=== PATIENT | female | born 1965 | race Caucasian/White ===

== ENCOUNTER 2022-04-21 09:00 | Outpatient (CLI) | payer OTHER, SELFPAY ==
--- NOTE | 2022-04-21 | CRLHL7_ITS ---
For Patients: As a result of the Century Cures Act, medical imaging exams and procedure reports are released immediately into your electronic medical record. You may view this report before your referring provider. If you have questions, please contact your health care provider. PLEASE SEE ULTRASOUND-GUIDED RIGHT BREAST BIOPSY PERFORMED SAME DAY CRL:mili garces/Dictated by: Juan J Adair MD @ 04/22/2022 9:55:00 AM (Electronically Signed)
--- NOTE | 2022-04-21 09:15 | CRLHL7_ITS ---
For Patients: As a result of the Century Cures Act, medical imaging exams and procedure reports are released immediately into your electronic medical record. You may view this report before your referring provider. If you have questions, please contact your health care provider. ULTRASOUND-GUIDED BREAST BIOPSY AND POST-BIOPSY DIGITAL MAMMOGRAM FOR BIOPSY MARKER PLACEMENT CLINICAL HISTORY: Indeterminate nodular density RIGHT breast. COMPARISON STUDIES: 04/14/2022. TECHNIQUE: Real-time ultrasound with image documentation was used for targeting the breast lesion. Core biopsy specimens were obtained using an automated gun with an 18-gauge biopsy needle. Post-biopsy CC and ML digital mammograms were obtained to document position of the biopsy marker. CONSENT and TIME OUT: The procedure, risks, and alternatives were explained to the patient and a consent was signed. [place] Protocol was followed including pre-procedure verification that relevant information/documentation was available, reviewed and properly matched to the patient; consent accurate and complete; and equipment and supplies available. Time Out was conducted just prior to starting procedure to verify the four required elements: patient identity, correct side/site marked (if applicable), procedure, relevant images/results properly labeled and displayed (if applicable). PROCEDURE: The patient was positioned supine on the ultrasound table. The breast was prepped with ChloraPrep. 8 cc of 1 percent lidocaine was used for local anesthesia. Core samples were obtained. A sterile metal biopsy clip was placed percutaneously to ashleigh the lesion position within the breast. The specimens were placed in 10% formalin and sent to the pathology department. Pressure was held on the biopsy site until all bleeding subsided. The skin incision was closed with Steri-Strips. An ice pack was positioned over the biopsy site. Post-biopsy instructions were reviewed with the patient, and a written copy was given to her. LATERALITY: RIGHT breast. LESION: Circumscribed heterogeneously hypoechoic nodule measuring 2.0 x 0.7 x 2.1 cm at 9 o`clock 6 cm from the nipple. SUSPICION FOR MALIGNANCY: Medium, probable apocrine hyperplasia or clustered microcysts. NUMBER OF SAMPLES: 5. BIOPSY CLIP SHAPE: Oval. PROXIMITY OF CLIP TO TARGET: Within the lesion. IMPRESSION: Ultrasound-guided breast biopsy. When the pathology report is available, an addendum to this report will be made. ACR not applicable Dictated by Juan J Adair MD @ 04/22/2022 9:55:18 AM jj/Dictated by: Juan J Aadir MD @ 04/22/2022 9:55:00 AM ----ADDENDUM---- Pathology consistent with benign clustered cysts. No evidence of atypia or malignancy. This is concordant. Routine annual BILATERAL screening mammography recommended. Dictated by: Juan J Adair MD @04/23/2022 12:51:39 PM Signed by:?Juan J Adair MD @04/23/2022 1:25:50 PM (Electronically Signed)
== END 2022-04-21 09:01 | disposition home or self-care (01) ==
LOC: US 09:02
PROVIDERS: PCP Family Medicine; Visit Provider Family Medicine
DX: N63.10 Unspecified lump in the right breast, unspecified quadrant (principal); N60.01 Solitary cyst of right breast; R92.8 Other abnormal and inconclusive findings on diagnostic imaging of breast
CPT/HCPCS: 19083; 77065; 88305; A4648; A4649

== ENCOUNTER 2024-03-27 08:58 | Emergency (ER) | payer BC, SELFPAY ==
[2024-03-27 09:09] VITALS: BP 143/88; PULSE 69; RESP 16; TEMP 36.6; O2SAT 94
--- NOTE | 2024-03-27 10:09 | ED.GENADULT ---
HPI - General Adult General Date Seen: 03/27/24 Chief complaint: Extremity Pain/Injury, Lower Stated complaint: something popped in leg, weak Time Seen by Provider: 03/27/24 09:58 History of Present Illness HPI narrative: 58-year-old female presenting to the ER today with right knee and right lower extremity pain. She was walking yesterday and heard a ?pop? in her right knee. Since then she has been having pain and unable to bear weight on it. Her right knee is developed swelling since yesterday. She and her are her here and they assist each other in providing history. She has been having some pain in her right posterolateral knee for the past few weeks. She has been trying to rest and massage when he gets or. Yesterday she was walking down a hill when she felt a ?pop? in that area of her knee and ever since then has had increased knee pain. The pain is in her posterolateral knee and also radiates up into her posterior thigh and down into her gastroc. No swelling. No bruising. No redness. No anterior pain. No medial pain. She has been having a lot of pain and not able to bear weight on the knee. It got a little bit swollen. Today it was still sore and she was debating whether not call her doctor, but since it was hurting so much she could not step on it, she need to come here to the ER. 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 No previous right knee problems. Related Data Home Medications ?Medication ?Instructions ?Recorded ?Confirmed amlodipine 5 mg tablet 5 mg PO DAILY 03/27/24 03/27/24 paroxetine HCl 40 mg tablet 40 mg PO DAILY 03/27/24 03/27/24 Previous Rx's ?Medication ?Instructions ?Recorded hydrocodone 5 mg-acetaminophen 325 1 tab PO Q4H PRN pain #10 tabs 03/27/24 mg tablet Allergies Allergy/AdvReac Type Severity Reaction Status Date / Time No Known Drug Allergies Allergy Verified 03/27/24 09:16 Exam Narrative: Exam Narrative: Constitutional: Appears well-developed and well-nourished. Polite and attentive.. Non-toxic appearing. HENT: Head: Atraumatic. No signs of injury. Nose: No nasal discharge. Mouth/Throat: Mucous membranes are moist. Pharynx is normal. Tonsils symmetric. Uvula midline. Airway patent. Eyes: Conjunctivae normal and EOM are normal. Pupils are equal, round, and reactive to light. Right eye exhibits no discharge. Left eye exhibits no discharge. No icterus. Neck: Normal range of motion. Neck supple. No adenopathy. No stridor. Cardiovascular: Normal rate and regular rhythm. No murmur heard. No murmurs, rubs, or gallops. Brisk capillary refill Pulmonary/Chest: Effort normal. No stridor. No respiratory distress. No wheezes.No rhonchi. No rales. No retractions. Musculoskeletal: Normal except for right knee-normal range of motion. No edema. No tenderness. No deformity. Right lower extremity: Pelvis is stable. Hips nontender. Quadriceps and hamstring nontender. Femoral shaft nontender. Knee: Normal inspection. There is no joint effusion. No redness or warmth. Anterior knee and patella are nontender. Medial knee and proximal medial tibia are nontender. She is tender over the anterolateral, lateral and posterolateral knee. No crepitus. No obvious deformity. No bruising. Subtle swelling there. Minimal tenderness in the lateral posterior knee but no tender in the popliteal fossa. Mild tenderness in the proximal lateral gastroc. Otherwise gastroc Achilles are nontender. No edema in the ankle or lower extremity. Ankle, foot are nontender. Normal DP and PT pulses. Normal cap refill. Intact ankle plantar flexion and dorsiflexion. Normal toe wiggling. Distally neurovascularly intact. Neurological: Alert. Normal strength. No cranial nerve deficit or sensory deficit. Coordination normal. GCS eye subscore is 4. GCS verbal subscore is 5. GCS motor subscore is 6. Skin: Skin is warm. No rash noted. Const: Vital Signs, click to edit/add: Vital Signs - 24 hr 03/27/24 09:09 Temperature 97.8 F Pulse Rate [Pulse Oximeter] 69 Respiratory Rate 16 Blood Pressure [Ri ght Upper Arm] 143/88 H Pulse Oximetry 94 Oxygen Delivery Me thod Room Air Course Vital Signs Vital signs: Initial Vital Signs Temperature 97.8 F 03/27/24 09:09 Temperature Source Temporal Artery Scan 03/27/24 09:09 Pulse Rate 69 03/27/24 09:09 Pulse Rhythm Regular 03/27/24 09:09 Respiratory Rate 16 03/27/24 09:09 Blood Pressure 143/88 H 03/27/24 09:09 Blood Pressure Mean 106 H 03/27/24 09:09 Blood Pressure Position Sitting 03/27/24 09:09 Pulse Oximetry 94 03/27/24 09:09 Oxygen Delivery Method Room Air 03/27/24 09:09 Vital Signs Temperature 97.8 F 03/27/24 09:09 Pulse Rate 69 03/27/24 09:09 Respiratory Rate 16 03/27/24 09:09 Blood Pressure 143/88 H 03/27/24 09:09 Pulse Oximetry 94 03/27/24 09:09 Oxygen Delivery Method Room Air 03/27/24 09:09 Temperature 97.8 F 03/27/24 09:09 Pulse Rate 69 03/27/24 09:09 Respiratory Rate 16 03/27/24 09:09 Blood Pressure 143/88 H 03/27/24 09:09 Pulse Oximetry 94 03/27/24 09:09 Oxygen Delivery Method Room Air 03/27/24 09:09 Medications Administered Medications: Discontinued Medications Generic Name Dose Route Start Last Admin Trade Name Ariadna PRN Reason Stop Dose Admin Hydrocodone Bitart/Acetaminophen 1 tab 03/27/24 10:20 03/27/24 10:44 Hydrocodone-Acetamin 5-325 Mg 1 Tab PO 03/27/24 10:21 1 tab ONCE ONE Administration Ondansetron HCl 4 mg 03/27/24 10:20 03/27/24 10:45 Ondansetron Odt 4 Mg Tab PO 03/27/24 10:21 4 mg ONCE ONE Administration Medical Decision Making [facility] Narrative Medical decision making narrative: Pleasant 58-year-old female presenting to the ER today with a couple of weeks history of right knee pain abruptly worse yesterday when she felt a pop while walking down a hill. She has been having a lot of pain and not able to bear weight on the knee since then so per came to the ER today. Consider possible fracture of the tibial plateau or the proximal fibula or avulsion fracture. X-rays are obtained and are fortunately negative for any acute fracture. There is no redness or warmth or joint effusion at this point to suggest a septic arthritis or crystalline arthritis. Would hold off on arthrocentesis this point. Differential also includes soft tissue injury such as a ruptured Ornelas's cyst, injury to the lateral collateral ligament or possible injury to the lateral meniscus. Will need close outpatient orthopedic follow-up. Will place the patient into a knee immobilizer to help protect her knee and give her crutches to limit weight-bearing for comfort. She will start with [id number] pain medications such as ibuprofen or Tylenol for pain relief. However will also add prescription for opiate pain killers that she can use for breakthrough pain. Opiate precautions discussed. Imaging Data XR RI kne: Attestation: I have reviewed the pertinent imaging results. Radiologist's impression: Findings/Impression: Bones: No definite evidence of acute fracture. Joint spaces: Small patellofemoral osteophytes consistent with osteoarthritis with trace knee effusion. Likely loose body at the posterior aspect of the joint. Soft tissues: Unremarkable. Discharge Plan Discharge Clinical Impression: Knee pain, right Patient Disposition: Home, Self-Care Condition: Stable Instructions: Knee Pain (ED) Additional Instructions: As we discussed, please follow-up with the orthopedic clinic within the next 2-4 days. You can call [phone] to arrange an ER follow-up appointment. If you have worsening pain, high fever, worsening redness or swelling of your knee joint, or any other problems, please come back to the ER right away to be rechecked. To help manage her pain use the knee brace and crutches to help rest her knee for the next couple of days. Use Tylenol or ibuprofen 1st for pain. You can use an ice pack for 20 minutes every 3-4 hours to help reduce pain and swelling. Use the prescription pain killer ([place]) if needed for breakthrough pain. Use caution with [place] because it causes dizziness, drowsiness, constipation, and can be addictive. Prescriptions: New hydrocodone-acetaminophen 5-325 mg tablet 1 tab PO Q4H PRN (Reason: pain) Qty: 10 0RF No Action amlodipine 5 mg tablet 5 mg PO DAILY paroxetine HCl 40 mg tablet 40 mg PO DAILY Follow Up/Referrals: Andressa Rodriguez MD [Primary Care Provider] - Stand Alone Forms: [facility] Info Instructions
--- NOTE | 2024-03-27 10:20 | CRLHL7_ITS ---
For Patients: As a result of the Century Cures Act, medical imaging exams and procedure reports are released immediately into your electronic medical record. You may view this report before your referring provider. If you have questions, please contact your health care provider. Indication: Knee pain, felt pop 1 day prior Technique: Three views right knee Comparison: None Findings/Impression: Bones: No definite evidence of acute fracture. Joint spaces: Small patellofemoral osteophytes consistent with osteoarthritis with trace knee effusion. Likely loose body at the posterior aspect of the joint. Soft tissues: Unremarkable. Dictated by Fransisco Elmore MD @ 03/27/2024 11:04:11 AM (Electronically Signed)
[2024-03-27] MEDS: HYDROCODONE-ACETAMIN 5-325 MG 1 TAB PO (10:44)
[2024-03-27] MEDS: ONDANSETRON ODT 4 MG TAB PO (10:45)
--- OUTSIDE RECORDS SUMMARY | 2024-03-27 10:48 | XMS_ITS | Clinical Summary ---
Author Organization [facility] Address [place], [place] [address] Care Team Providers Care Mathematical Scientist Name Role Phone Andressa Rodriguez MD Primary Care Provider Allergies Active Allergy Reactions Criticality Noted Date Comments Lisinopril Cough 04/10/2019 Medications Medication Sig Dispensed Refills Start Date End Date Status fluticasone (50 mcg per actuation) nasal solution (FLONASE)Indications :Seasonal allergic rhinitis due to pollen Inhale 1 [place] in the nostril(s) 2 times daily. 1 Bottle 11 07/27/2017 Active multivitamin (MVI) tablet Take 1 tablet by mouth once daily. 0 03/06/2019 Active calcium carbonate-vitamin D3, 600 mg-400 unit, 600 mg(1,500mg) -400 unit tablet Take 1 tablet by mouth once daily with a meal. 200 tablet 4 03/06/2019 Active cetirizine (ZYRTEC) 10 mg tabletIndications:Ac red devil allergic reaction, initial encounter,Rash and nonspecific skin eruption Take 1-2 tabs by mouth twice daily for acute allergic reaction. 30 Tablet 08/27/2022 Active amLODIPine (NORVASC) 5 mg tabletIndications:HT N (hypertension) Take 1 Tablet (5 mg) by mouth once daily. 90 Tablet 3 04/21/2023 Active PARoxetine (PAXIL) 40 mg tabletIndications:Pa cherie disorder without agoraphobia Take 1 Tablet (40 mg) by mouth every morning. 90 Tablet 3 04/21/2023 Active ALPRAZolam (XANAX) 0.25 mg tabletIndications:Pa cherie disorder without agoraphobia,Anxiety state Take 1 Tablet (0.25 mg) by mouth every 12 hours if needed for Panic. 30 Tablet 1 04/21/2023 Active Active Problems Problem Noted Date Diagnosed Date Hyperplastic colon polyp 06/03/2015 Overview (06/03/2015): Colonoscopy 05/2015 polyps repeat in 10 years Panic disorder without agoraphobia 12/12/2013 Lateral malleolar fracture 04/26/2013 Panic disorder without agoraphobia 03/03/2007 Resolved Problems Problem Noted Date Diagnosed Date Resolved Date ETD (eustachian tube dysfunction) 04/24/2011 05/16/2012 Headache(784.0) 04/24/2011 05/16/2012 Immunizations Name Administration Dates Next Due COVID-19 vaccine ([employer] NTech 30mcg/0.3mL) 12YO+ BIVALENT PF, MDV 03/18/2022 COVID-19 vaccine ([employer] NTech 30mcg/0.3mL) PF, MDV 07/09/2020,06/18/2020 Influenza Virus, Unspecified 02/19/2016 Influenza, IIV4 02/22/2023, 2,03/17/2021,2019,03/16/2014 Td (Age >=7 Years) 05/17/2001 Tdap 12/15/2013 Zoster (Shingrix-RZV, recombinant) 09/05/2020, Family History Medical History Relation Name Comments Heart Disease Father Hypertension Father Other Father bladder cancer Cancer-breast Maternal Aunt Good Health Mother Cancer-colon No Family History Relation Name Status Comments Father (Age 72) cerebral b leed (tumor bleed? aneurysm?) Maternal Aunt Mother Alive Social History Tobacco Use Types Packs/Day Years Used Date Smoking Tobacco: Never Smokeless Tobacco: Never Tobacco Cessation:Counseling Given: Yes Alcohol Use Standard Drinks/Week Comments Not Currently 0 (1 standard drink = 0.6 oz pur e alcohol) occasional PHQ-2 Answer Date Recorded PHQ-2 TOTAL SCORE 0 04/21/2023 Social Connections Answer Date Recorded Do you often feel lonely or isolated from those around you? 0 04/21/2023 Financial Resource Strain Answer Date R ecorded Difficulty of Paying Living Expenses 3 04/21/2023 Difficulty of Paying Living Expenses Not on file 04/21/2023 Food Insecurity Answer Date Recorded Do you worry your food will run out before you are able to buy more? 1 04/21/2023 Transportation Needs Answer Date Record ed Does lack of transportation keep you from medica l appointments? 1 04/21/2023 Does lack of transportation keep you from work, meetings or getting things that you need? 1 04/21/2023 Housing Stability Answer Date Recorded What is your housing situation today? 1 04/21/2023 Sex and Gender Information Value Date Recorded Sex Assigned at Not on file Gender Identity Not on file Sexual Orientation Not on file Obstetrics History Para Term AB IAB SAB Ectopic Multiple Livin g Live Births 4 2 2 2 1 1 2 Date Outcome GA Total Labor Labor/2nd/3rd Weight Sex Type Anes PTL Fatou A1 A5 Name Clin Term Term SAB Ectopic Last Filed Vital Signs Vital Sign Reading Time Taken Comments Blood Pressure 125/83 05/25/2023 8:13 AM [employer] Pulse 74 05/25/2023 8:13 AM [employer] Temperature 36.3 ??C (97.4 ??F) 11/15/2018 11:12 AM C DT Respiratory Rate 20 06/09/2017 3:43 PM [employer] Oxygen Saturation 95% 05/25/2023 8:13 AM [employer] Inhaled Oxygen Concentration - - Weight 80.8 kg (178 lb 3.2 oz) 04/21/2023 2:56 P M [employer] Height 160 cm (5' 3) 04/21/2023 2:56 PM [employer] Body Mass Index 31.57 04/21/2023 2:56 PM [employer] Plan of Treatment Health Maintenance Due Date Last Done Comments Tetanus booster 12/16/2023 12/15/2013, 05/17/2001 COVID-19 vaccine series ( season) 2024 03/18/2022, 07/09/2020, 06/18/2020 Influenza for age 50-64 01/16/2024 02/23/20 23, 04/07/2022, 03/17/2021, Additional history exists BMI (ht and wt on same day) for age 18+ 04/21/2024 04/21/2023, 03/18/2022, 03/17/2021, Additional history exists Depression screening for age 12+ 04/21/2024 04/21/2023, 03/20/2022, 03/18/2022, Additional history exists Mammogram for age 45-75 05/04/2024 05/04/20 23, 04/21/2022, 04/14/2022, Additional history exists Pap test for age 21-65 03/13/2025 , 03/13/2020, 04/28/2016, Additional history exists Colonoscopy through age 75 05/29/2025 05/29/2015, Lipids for age 45-75 04/21/2028 04/21/2023, 03/18/2022, 03/18/2022, Additional history exists Hepatitis C screening for age 18-79 Completed 12/12/2013 Tdap Completed 12/15/2013 Zoster (shingles) series for age 50+ Completed 09/05/2020, 03/13/2020 HIV for age 15-65 Completed 04/21/2023 Pneumococcal series for age 6-64 Aged Out No longer eligible based on patient's age to complete this topic Procedures Procedure Name Priority Date/Time Associated Diagnosis Comments XR MAMMO SILAS BILAT SCREEN Routine 05/04/2023 11:09 AM [employer] Visit for screening mammogram ANTI HIV 1/2 Routine 04/21/2023 3:50 PM [employer] Screening for HIV (human immunodeficiency virus) LIPID PANEL W REFLEX MEASURED LDL Routine 04/21/2023 3:50 PM [employer] [employer] Lipid screening 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 ??Recommend annual mammograms. MAMMOGRAM ASSESSMENT: ??ACR 2 Benign PATIENTS: You will also receive a letter with your examination results in an easy to read format. ??If you have questions about your results, please contact your referring provider. Narrative 05/04/2023 2:05 PM [employer] For Patients: As a result of the Century Cures Act, medical imaging exams and procedure reports are released immediately into your electronic medical record. You may view this report before your referring provider. If you have questions, please contact your health care provider. XR MAMMO SILAS BILAT SCREEN [[id number]] CLINICAL HISTORY: ??This is an asymptomatic 57 y.o. patient. INDICATION FOR EXAM: Mammogram Screening. TECHNIQUE: CC & MLO views were obtained. ??This study was evaluated with the assistance of Computer-Aided Detection. Breast Tomosynthesis was used in interpretation. COMPARISON FILMS: Yes 03/20/22 [facility] 09/23/18 [facility] FINDINGS: ??The breasts are heterogeneously dense, which may obscure small masses. ??No suspicious masses or microcalcifications. ??Post biopsy changes of right breast. Andressa Rodriguez MD MAMMO * (ABNORMAL) LIPID PANEL W REFLEX MEASURED LDL (04/21/2023 3:50 PM [employer]) CHOLESTEROL,TOTAL 248(H) 100 - 199 mg/dL 04/22/2023 2:37 PM [employer] [employer] [facility] Comment: Cholesterol, Total Reference Ranges Desirable <200 mg/dL Borderline 200-239 mg/dL High >=240 mg/dL TRIGLYCERIDES 280(H) <150 mg/dL 04/22/2023 2:37 PM [employer] [employer] [facility] HDL CHOLESTEROL 42 >40 mg/dL 3 2:37 PM [employer] [facility] NON-HDL CHOLESTEROL 206(H) <145 mg/dl 04/22/2023 2:37 PM [employer] [employer] [facility] CHOL/HDL RATIO 5.90(H) <4.50 04/22/2023 2:37 PM [employer] [facility] LDL CHOLESTEROL 150(H) <=130 mg/dL 04/22/2023 2:37 PM [employer] [facility] VLDL CHOLESTEROL 56(H) <=30 mg/dL 04/22/2023 2:37 PM [employer] [facility] PROVIDER ORDERED STATUS RANDOM 04/22/2023 2:37 PM [employer] [employer] [facility] Blood BLOOD SPECIMEN / Unknown Venipuncture / Unknown 04/21/2023 3:50 PM [employer] 04/21/2023 3:51 PM [facility] [employer] Andressa Rodriguez MD CHEMISTRY Performing Organization Address [facility] Co de Phone Number [facility] [address] [place] [address], * ANTI HIV 1/2 [[id number]] (04/21/2023 3:50 PM [employer]) HIV-1/HIV-2 SCREEN Non-Reacti ve Non-Reacti ve 04/22/2023 2:25 PM [facility] [employer] [facility] Comment:HIV-1 p24 and HIV-1/ HIV-2 Ab Not Detected. Blood BLOOD SPECIMEN / Unknown Venipuncture / Unknown 04/21/2023 3:50 PM [facility] [employer] 04/21/2023 3:51 PM [employer] Andressa Rodriguez MD SEND OUTS Performing Organization Address [facility] Co de Phone Number [facility] [address] [place] [address], * TREE FELLER OPERATOR THIN PREP PAP SCREEN IMAGED [[id number]] (03/13/2020 1:15 PM CDT) Case Report Gynecologic Cytology Report ? Case: [id number] ? Authorizing Provider: ??Michael, Andressa Gavi, MD Collected: ? 03/13/2020 1315 ? Ordering Location: ? [facility] ?? Received: ?03/13/2020 1404 ? Clinic ? First Screen: ?Rissa Mcdonough ? Specimen: ?TREE FELLER OPERATOR ThinPrep Vial Screening, Cervical ? 03/20/2020 11:36 AM [facility] LAB[facility]-C ENTRAL LABORATORY INTERPRETATION/ RESULT NEGATIVE FOR INTRAEPITHELIAL LESION OR MALIGNANCY (NIL) (none) 03/20/2020 11:36 AM [facility] [employer]C ENTRAL LABORATORY IMEN ADEQUACY Satisfactory for evaluation Endocervical component present 03/20/2020 11:36 AM [facility] LABOR[facility]-C ENTRAL LABORATORY HPV REQUEST HPV and PAP 03/20/2020 11:36 AM [facility] [employer] [facility] LAB[facility]-C ENTRAL LABORATORY Date of 201303/20/2020 11:36 AM [facility] LAB[facility]-C EN[facility]AL LABORATORY Last Pap Date 04/28/16 03/20/2020 11:36 AM [facility] LAB[facility]-C ENTRAL LABORATORY Last Pap Result NIL 0 11:36 AM [facility] Abnormal Pap or [place] Bx in last 5 years No 03/20/2020 11:36 AM [facility] Menstrual Status Postmenopausal 03/20/2020 11:36 AM [facility] [place] Bx Done Today No 03/20/2020 11:36 AM [facility] Additional Information None given 03/20/2020 11:36 AM [facility] Comment: Cytology is screened at [facility] - [address], [place] [address] and [facility] - [address], [place] [address] and [facility] - [address] [place] [address] Interpreted at [facility] - [address], [place] [address] Automated Review Successful 03/20/2020 11:36 AM [facility] Comment:Specimen processed s uccessfully by automated orchid superintendent device, [employer] Imaging System, [employer] ANCILLARY TESTING TREE FELLER OPERATOR HPV Ordered, Please see separate report 03/20/2020 11:36 AM [facility] Note The pap test is a screening technique, not a diagnostic procedure. It is used primarily to screen for squamous cancers and precursor lesions. Published studies have shown that it is subject to both false negative and false positive results. The pap test should not be used as the sole means to diagnose or exclude pre-malignant and malignant lesions. 03/20/2020 11:36 AM [facility] Other (Cervical) Non-Blood / Unknown 03/13/2020 1:15 PM CDT 03/13/2020 2:04 PM CDT Andressa Rodriguez MD PATHOLOGY/CYTOL OGY [facility] [address] [place] [address], [place] * ANTI HCV [[id number]] (12/12/2013 3:28 PM CDT) HEPATITIS C ANTIBODY Non-Reacti ve Non-Reacti ve 12/12/2013 8:24 PM CDT [facility] Blood specimen (specimen) BLOOD SPECIMEN / Unknown Venipuncture / Unknown 12/12/2013 3:28 PM CDT 12/12/2013 3:28 PM CDT Narrative [facility] - 12/12/2013 8:24 PM CDT Antibodies to HCV not detected; does not exclude the possibility of exposure to HCV. [place] SEND OUTS [facility] [address] [place] [address], from Last 3 Months or Most Recently Relevant to Health Maintenance Care Teams Mathematical Scientist Relationship Specialty Start Date End Date Andressa Rodriguez MD [address] [place] [address] PCP - General Family Practice 04/25/19
== END 2024-03-27 11:56 | disposition home or self-care (01) ==
PROVIDERS: Emergency Provider Emergency Medicine; PCP Family Medicine; Visit Provider Emergency Medicine
DX: M25.561 Pain in right knee (principal)
CPT/HCPCS: 73562; 99282; 99283; A9270

== ENCOUNTER 2024-05-18 10:04 | Day surgery (SDC) | payer OTHER, SELFPAY ==
[2024-05-18] VITALS (13 sets, daily range): BP systolic 101–145; BP diastolic 63–90; PULSE 51–63; RESP 10–16; TEMP 36.3–37.1; O2SAT 94–100; BMI 30.6
--- OUTSIDE RECORDS SUMMARY | 2024-05-18 10:09 | XMS_ITS | Clinical Summary ---
Author Organization [employer] [facility] Address [place], [place] [address] Care Team Providers Care Electric Welder Name Role Phone Andressa Rodriguez MD Primary Care Provider Allergies Active Allergy Reactions Criticality Noted Date Comments Lisinopril Cough 04/10/2019 Medications fluticasone (50 mcg per actuation) nasal solution (FLONASE)Indicat ions:Seasonal allergic rhinitis due to pollen Inhale 1 [place] in the nostril(s) 2 times daily. 1 Bottle 11 8 Active multivitamin (MVI) tablet Take 1 tablet by mouth once daily. 0 9 Active calcium carbonate-vitami n D3, 600 mg-400 unit, 600 mg(1,500mg) -400 unit tablet Take 1 tablet by mouth once daily with a meal. 200 tablet 4 9 Active cetirizine (ZYRTEC) 10 mg tabletIndication s:Acute allergic reaction, initial encounter,Rash and nonspecific skin eruption Take 1-2 tabs by mouth twice daily for acute allergic reaction. 30 Tablet 3 Active amLODIPine (NORVASC) 5 mg tabletIndication s:HTN (hypertension) Take 1 Tablet (5 mg) by mouth once daily. 90 Tablet 3 4 Active ALPRAZolam (XANAX) 0.25 mg tabletIndication s:Panic disorder without agoraphobia,Anxi ety state Take 1 Tablet (0.25 mg) by mouth every 12 hours if needed for Panic. 30 Tablet 1 4 Active PARoxetine (PAXIL) 40 mg tabletIndication s:Panic disorder without agoraphobia Take 1 Tablet (40 mg) by mouth once daily in the morning. 90 Tablet 3 4 Active atenoloL (TENORMIN) 25 mg tabletIndication s:Hypertension Take 1 Tablet (25 mg) by mouth once daily. 30 Tablet 4 Active ALPRAZolam (XANAX) 0.25 mg tabletIndication s:Panic disorder without agoraphobia,Anxi ety state Take 1 Tablet (0.25 mg) by mouth every 12 hours if needed for Panic. 30 Tablet 1 3 04/28/20 24 Discontinu ed(Reorder (E-cancel not sent)) PARoxetine (PAXIL) 40 mg tabletIndication s:Panic disorder without agoraphobia Take 1 Tablet (40 mg) by mouth once daily in the morning. 30 Tablet 4 05/03/20 24 Discontinu ed(Reorder (E-cancel not sent)) amLODIPine (NORVASC) 5 mg tabletIndication s:HTN (hypertension) Take 1 Tablet (5 mg) by mouth once daily. 30 Tablet 4 04/28/20 24 Discontinu ed(Reorder (E-cancel not sent)) metoprolol succinate (Toprol XL) 25 mg Sustained-Releas e tabletIndication s:HTN (hypertension) Take 1 Tablet (25 mg) by mouth once daily. 90 Tablet 4 05/11/20 24 Discontinu ed(*Allerg ic/Adverse Rxn/Side Effects) Active Problems Problem Noted Date Diagnosed Date Hyperplastic colon polyp 06/03/2015 Overview (06/03/2015): Colonoscopy 05/2015 polyps repeat in 10 years Panic disorder without agoraphobia 12/12/2013 Lateral malleolar fracture 04/26/2013 Panic disorder without agoraphobia 03/03/2007 Resolved Problems Problem Noted Date Diagnosed Date Resolved Date ETD (eustachian tube dysfunction) 04/24/2011 05/16/2012 Headache(784.0) 04/24/2011 05/16/2012 Encounters Date Type Department Care Team Description 05/08/2024 Telephone [facility] [address] [place] [address] Andressa Rodriguez MD Same Day Appt 05/03/2024 3:40 PM CERTIFIED LEGAL INVESTIGATOR Office Visit [facility] [address] [place] [address] Andressa Rodriguez MD Pre-Op Exam (Knee torn meniscus repair 05/18/24 [facility] ); Immunization/Injectio n 05/03/2024 Travel 04/28/2024 10:55 AM CERTIFIED LEGAL INVESTIGATOR Office Visit [facility] [address] [place] [address] Andressa Rodriguez MD Follow Up (Went to the ED in regards to BP they adjusted her meds and now things are not well, racing heart. Unsure if it is the medication or anxiety but has not had this issue until medication was adjusted. She has surgery in May and needs this to be resolved.) 04/28/2024 Travel 04/20/2024 Nurse Triage [facility] [address] [place] [address] Andressa Rodriguez MD High Blood Pressure 04/18/2024 Refill [facility] [address] [place] [address] [address] Andressa Rodriguez MD Refill Request (Paroxetine 40mg, Amlodipine Besylate 5mg tablets) 03/27/2024 Orders Only [facility] Scanner 1 scan: (1-Ord) KYRIE, RIGHT KNEE, 03/27/2024 from Last 3 Months Immunizations Name Administration Dates Next Due COVID-19 VACCINE SPIKEVAX (M ODERNA 50MCG/0.5ML) 12YO+ PFS 05/03/2024 COVID-19 vaccine (Pfizer-Bio NTech 30mcg/0.3mL) 12YO+ BIVALENT PF, MDV 03/18/2022 COVID-19 vaccine (Pfizer-Bio NTech 30mcg/0.3mL) PF, MDV 07/09/2020,06/18/2020 INFLUENZA, IIV3 PF (AGE >= 6 MO) 05/03/2024 Influenza Virus, Unspecified 02/19/2016 Influenza, IIV4 02/22/2023, 2,03/17/2021,2019,03/16/2014 Td (Age >=7 Years) 05/17/2001 Tdap 05/03/2024,12/15/2013 Zoster (Shingrix-RZV, recombinant) 09/05/2020, Family History Medical [...] = 0.6 oz pur e alcohol) occasional [facility] Utilities Answer Date Recorded Do you have trouble paying f or utilities (for example, heat, electricity, water, phone)? Yes 04/28/2024 PHQ-2 Answer Date Recorded PHQ-2 TOTAL SCORE 0 04/21/2023 Social Connections Answer Date Recorded Do you often feel lonely or isolated from those around you? 0 04/28/2024 Financial Resource Strain Answer Date R ecorded Difficulty of Paying Living Expenses 3 04/28/2024 Difficulty of Paying Living Expenses Not on file 04/28/2024 Food Insecurity Answer Date Recorded Do you worry your food will run out before you are able to buy more? 1 04/28/2024 Transportation Needs Answer Date Record ed Does lack of transportation keep you from medica l appointments? 1 04/28/2024 Does lack of transportation keep you from work, meetings or getting things that you need? 1 04/28/2024 Housing Stability Answer Date Recorded What is your housing situation today? 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 Not on file Not on file Not on file Obstetrics History Para Term AB IAB SAB Ectopic Multiple Livin g Live Births 4 2 2 2 1 1 2 Date Outcome GA Total Labor Labor/2nd/3rd Weight Sex Type Anes PTL Fatou A1 A5 Name Clin Term Term SAB Ectopic Last Filed Vital Signs Vital Sign Reading Time Taken Comments Blood Pressure 134/86 05/03/2024 3:46 PM CERTIFIED LEGAL INVESTIGATOR Pulse 67 05/03/2024 3:46 PM CERTIFIED LEGAL INVESTIGATOR Temperature 36.3 C (97.4 F) 11/15/2018 11:12 AM CDT Respiratory Rate 20 06/09/2017 3:43 PM CERTIFIED LEGAL INVESTIGATOR Oxygen Saturation 96% 05/03/2024 3:46 PM CERTIFIED LEGAL INVESTIGATOR Inhaled Oxygen Concentration - - Weight 76 kg (167 lb 9.6 oz) 05/03/2024 3:46 PM CERTIFIED LEGAL INVESTIGATOR Height 158.8 cm (5' 2.5) 05/03/2024 3:46 PM CERTIFIED LEGAL INVESTIGATOR Body Mass Index 30.17 05/03/2024 3:46 PM CERTIFIED LEGAL INVESTIGATOR Plan of Treatment Upcoming Encounters Date Type Department Care Team (Late st Contact Info) Description 05/22/2024 2:20 PM CERTIFIED LEGAL INVESTIGATOR Office Visit [facility] [address] [place] [address] Fadumo Macias MD [address] [place] [address] Health Maintenance Due Date Last Done Comments Pneumococcal series for age 50+ (1 of 1 - PCV) 12/17/2013 RSV vaccine for adults or (1 - Risk 60-74 years 1-dose series) 2023 Depression screening for age 12+ 04/21/2024 04/21/2023, 03/20/2022, 03/18/2022, Additional history exists Mammogram for age 45-75 05/04/2024 05/04/20 23, 04/21/2022, 04/14/2022, Additional history exists Pap test for age 21-65 03/13/2025 0, 03/13/2020, 04/28/2016, Additional history exists BMI (ht and wt on same day) for age 18+ 05/03/2025 05/03/2024, 04/21/2023, 03/18/2022, Additional history exists Colonoscopy through age 75 05/29/2025 05/29/2015, Lipids for age 45-75 04/21/2028 04/21/2023, 03/18/2022, 03/18/2022, Additional history exists Tetanus booster 05/03/2034 05/03/2024, 08/05/2013, 05/17/2001 Hepatitis C screening for ag e 18-79 Completed 12/12/2013 Zoster (shingles) series for age 50+ Completed 09/05/2020, 03/13/2020 HIV for age 15-65 Completed 04/21/2023 COVID-19 vaccine series Completed 05/03/20, 03/18/2022, 07/09/2020, Additional history exists Influenza for age 50-64 Completed 05/03/20, 02/22/2023, 04/07/2022, Additional history exists Tdap Completed 05/03/2024, 12/15/2013 Procedures Procedure Name Priority Date/Time Associated Diagnosis Comments SCAN-RADIOLOGY REPORT 03/27/2024 12:00 AM CERTIFIED LEGAL INVESTIGATOR XR MAMMO SILAS BILAT SCREEN Routine 05/04/2023 11:09 AM CERTIFIED LEGAL INVESTIGATOR Visit for screening mammogram ANTI HIV 1/2 Routine 04/21/2023 3:50 PM CERTIFIED LEGAL INVESTIGATOR Screening for HIV (human immunodeficiency virus) LIPID PANEL W REFLEX MEASURED LDL Routine 04/21/2023 3:50 PM CERTIFIED LEGAL INVESTIGATOR Lipid screening LEHR CUTTER THIN PREP PAP SCREEN IMAGED Routine 03/13/2020 1:15 PM CDT Pap smear for cervical cancer screening Screening for cervical cancer ANTI HCV Routine 12/12/2013 3:28 PM CDT Need for hepatitis C screening test from Last 3 Months or Most Recently Relevant to Health Maintenance Results * SCAN-RADIOLOGY REPORT (03/27/2024 12:00 AM CERTIFIED LEGAL INVESTIGATOR) Anatomical Region Laterality Modality Other us Scanner OTHER Final Result * XR MAMMO SILAS BILAT SCREEN (05/04/2023 11:09 AM CERTIFIED LEGAL INVESTIGATOR) Anatomical Region Laterality Modality BREASTS, Breast Left, Breast Right Bilateral Mammography Impressions 05/04/2023 2:05 PM CERTIFIED LEGAL INVESTIGATOR There is no radiographic evidence for malignancy. Recommend annual mammograms. MAMMOGRAM ASSESSMENT: ACR 2 Benign PATIENTS: You will also receive a letter with your examination results in an easy to read format. If you have questions about your results, please contact your referring provider. Narrative 05/04/2023 2:05 PM CERTIFIED LEGAL INVESTIGATOR For Patients: As a result of the Century Cures Act, medical imaging exams and procedure reports are released immediately into your electronic medical record. You may view this report before your referring provider. If you have questions, please contact your health care provider. XR MAMMO SILAS BILAT SCREEN [[id number]] CLINICAL HISTORY: This is an asymptomatic 57 y.o. patient. INDICATION FOR EXAM: Mammogram Screening. TECHNIQUE: CC & MLO views were obtained. This study was evaluated with the assistance of Computer-Aided Detection. Breast Tomosynthesis was used in interpretation. COMPARISON FILMS: Yes 03/20/22 Lessons Only 09/23/18 [facility] FINDINGS: The breasts are heterogeneously dense, which may obscure small masses. No suspicious masses or microcalcifications. Post biopsy changes of right breast. us Andressa Rodriguez MD MAMMO Final R esult * (ABNORMAL) LIPID PANEL W REFLEX MEASURED LDL (04/21/2023 3:50 PM CERTIFIED LEGAL INVESTIGATOR) CHOLESTEROL,TOTAL 248(H) 100 - 199 mg/dL 04/22/2023 2:37 PM CERTIFIED LEGAL INVESTIGATOR [facility] Comment: Cholesterol, Total Reference Ranges Desirable <200 mg/dL Borderline 200-239 mg/dL High >=240 mg/dL TRIGLYCERIDES 280(H) <150 mg/dL 04/22/2023 2:37 PM CERTIFIED LEGAL INVESTIGATOR [facility] HDL CHOLESTEROL 42 >40 mg/dL 3 2:37 PM CERTIFIED LEGAL INVESTIGATOR [facility] NON-HDL CHOLESTEROL 206(H) <145 mg/dl 04/22/2023 2:37 PM CERTIFIED LEGAL INVESTIGATOR [facility] CHOL/HDL RATIO 5.90(H) <4.50 04/22/2023 2:37 PM CERTIFIED LEGAL INVESTIGATOR [facility] LDL CHOLESTEROL 150(H) <=130 mg/dL 04/22/2023 2:37 PM CERTIFIED LEGAL INVESTIGATOR [facility] VLDL CHOLESTEROL 56(H) <=30 mg/dL 04/22/2023 2:37 PM CERTIFIED LEGAL INVESTIGATOR [facility] PROVIDER ORDERED STATUS RANDOM 04/22/2023 2:37 PM CERTIFIED LEGAL INVESTIGATOR [facility] Blood BLOOD SPECIMEN / Unknown Venipuncture / Unknown 04/21/2023 3:50 PM CERTIFIED LEGAL INVESTIGATOR 04/21/2023 3:51 PM CERTIFIED LEGAL INVESTIGATOR Andressa Rodriguez MD CHEMISTRY Final R esult Performing Organization Address City/[facility]/ZIP Co de Phone Number [facility] [address] [place] [id number], [place] * ANTI HIV 1/2 [30136.0] (04/21/2023 3:50 PM CERTIFIED LEGAL INVESTIGATOR) HIV-1/HIV-2 SCREEN Non-Reacti ve Non-Reacti ve 04/22/2023 2:25 PM CERTIFIED LEGAL INVESTIGATOR [facility] Comment:HIV-1 p24 and HIV-1/ HIV-2 Ab Not Detected. Blood BLOOD SPECIMEN / Unknown Venipuncture / Unknown 04/21/2023 3:50 PM CERTIFIED LEGAL INVESTIGATOR 04/21/2023 3:51 PM CERTIFIED LEGAL INVESTIGATOR Andressa Rodriguez MD SEND OUTS Final R esult Performing Organization Address City/[facility]/ZIP Co de Phone Number [facility] [address] [place] [id number], [place] * LEHR CUTTER THIN PREP PAP SCREEN IMAGED [[id number]] (03/13/2020 1:15 PM CDT) Case Report Gynecologic Cytology Report Case: [id number] Authorizing Provider: Andressa Rodriguez MD Collected: 03/13/2020 1315 Ordering Location: [facility] Received: 03/13/2020 1404 Clinic First Screen: Mcdonough, Rissa Specimen: LEHR CUTTER ThinPrep Vial Screening, Cervical 03/20/2020 11:36 AM CERTIFIED LEGAL INVESTIGATOR [employer]AL LAB[facility]AT[facility] INTERPRETATION/ RESULT NEGATIVE FOR INTRAEPITHELIAL LESION OR MALIGNANCY (NIL) (none) 03/20/2020 11:36 AM CERTIFIED LEGAL INVESTIGATOR [facility] [employer] EN[facility]AL LAB[facility]AT[facility] IMEN ADEQUACY Satisfactory for evaluation Endocervical component present 03/20/2020 11:36 AM CERTIFIED LEGAL INVESTIGATOR [facility] HPV REQUEST HPV and PAP 03/20/2020 11:36 AM CERTIFIED LEGAL INVESTIGATOR [employer] Date of LMP 201303/20/2020 11:36 AM CERTIFIED LEGAL INVESTIGATOR [employer] EN[facility] Last Pap Date 04/28/16 03/20/2020 11:36 AM CERTIFIED LEGAL INVESTIGATOR [facility] [employer] EN[facility]AL LAB[facility] Last Pap Result NIL 0 11:36 AM CERTIFIED LEGAL INVESTIGATOR [facility] [employer] ENTRAL LABORATORY Abnormal Pap or Melvin Bx in last 5 years No 03/20/2020 11:36 AM CERTIFIED LEGAL INVESTIGATOR [facility] Menstrual Status Postmenopausal 03/20/2020 11:36 AM CERTIFIED LEGAL INVESTIGATOR [facility] Melvin Bx Done Today No 03/20/2020 11:36 AM CERTIFIED LEGAL INVESTIGATOR [facility] Additional Information None given 03/20/2020 11:36 AM CERTIFIED LEGAL INVESTIGATOR [facility] [employer] [facility] Comment: Cytology is screened at [facility] [employer] [facility], Central Laboratory - [address], [place] [address] and [facility] - [address], [place] [address] and [facility] - [address] [place] [address] Interpreted at [facility] [employer], Central Laboratory - [address], [place] [address] Automated Review Successful 03/20/2020 11:36 AM CERTIFIED LEGAL INVESTIGATOR [facility] [employer] ENTRAL LABORATORY Comment:Specimen processed s uccessfully by automated undergraduate intern device, ThinPrep Imaging System, [employer] ANCILLARY TESTING LEHR CUTTER HPV Ordered, Please see separate report 03/20/2020 11:36 AM CERTIFIED LEGAL INVESTIGATOR [facility] [employer] ENTROR LABORATORY Note The pap test is a screening technique, not a diagnostic procedure. It is used primarily to screen for squamous cancers and precursor lesions. Published studies have shown that it is subject to both false negative and false positive results. The pap test should not be used as the sole means to diagnose or exclude pre-malignant and malignant lesions. 03/20/2020 11:36 AM CERTIFIED LEGAL INVESTIGATOR [facility] [employer] [facility] ENTRAL LABORATORY Other (Cervical) Non-Blood / Unknown 03/13/2020 1:15 PM CDT 03/13/2020 2:04 PM CDT Andressa Rodriguez MD PATHOLOGY/CYTOLOGY Emilie l Result Performing Organization Address City/[facility]/ZIP Co de Phone Number [facility] [address] [place] [address], [place] * ANTI HCV [39509.2] (12/12/2013 3:28 PM CDT) HEPATITIS C ANTIBODY Non-Reacti ve Non-Reacti ve 12/12/2013 8:24 PM CDT [facility] Blood specimen (specimen) BLOOD SPECIMEN / Unknown Venipuncture / Unknown 12/12/2013 3:28 PM CDT 12/12/2013 3:28 PM CDT Narrative [facility] - 12/12/2013 8:24 PM CDT Antibodies to HCV not detected; does not exclude the possibility of exposure to HCV. [place] SEND OUTS Final R esult [facility] [address] [place] [address], [place] from Last 3 Months or Most Recently Relevant to Health Maintenance Insurance [facility] Care Teams Electric Welder Relationship Specialty Start Date End Date Andressa Rodriguez MD [address] [place] [address] PCP - General Family Practice 04/25/19
[2024-05-18] MEDS: SODIUM CHLORIDE 0.9 % (FLUSH) 10 ML SYRINGE IVF (10:48)
[2024-05-18] MEDS: LACTATED RINGERS 500 ML 500 ML 100 ML IV (11:13)
[2024-05-18] MEDS: CEFAZOLIN 2 GM INJ IVP (11:25)
--- NOTE | 2024-05-18 12:14 | P.ORPRC_ITS ---
Procedure Note Date of procedure: 05/18/24 Procedure: PREOPERATIVE DIAGNOSIS: Right knee medial meniscus root tear POSTOPERATIVE DIAGNOSIS: Right knee medial meniscus root tear NAME OF OPERATION: Right knee arthroscopic medial meniscus root repair, microfracture of the notch SURGEON: Steve Mcgregor MD AIRPLANE REFUELER: VIDHI Good ANESTHESIA: Spinal ESTIMATED BLOOD LOSS: 0 mL COMPLICATIONS: None SPECIMENS: None DRAINS: None PREOPERATIVE ANTIBIOTICS: Ancef 1 gram INDICATIONS: The patient is a 58-year-old female with a history of right knee posterior pain. MRI scan is consistent with a medial meniscus root tear. Despite appropriate nonoperative management, including activity modification, antiinflammatories, [id number] pain medication, bracing, physical therapy, and injections they continue to have pain and disability. Operative intervention was offered. The risks, benefits and expected outcomes were discussed in detail. These included but were not limited to: Infection, bleeding, injury to blood vessel or nerve, venous thromboembolism. All questions were answered to their satisfaction. PROCEDURE: Spinal anesthesia was administered. The patient was placed supine on the operating room table. The right lower extremity was prepped and draped in the usual sterile fashion. The limb was exsanguinated with the Antonio bandage. The pneumatic tourniquet was inflated to 300 mmHg. A standard anterolateral portal was established. The arthroscope was introduced. The working portal was established anteromedially. Diagnostic arthroscopy was performed with findings as follows: The suprapatellar pouch is normal. Articular surface on the patella PA-C shows diffuse grade 3 change, focal grade 4 change centrally. Articular surface on the trochlea is normal. The medial and lateral gutters and suprapatellar pouch are full of hyperemic synovitis. The medial compartment shows diffuse grade 3 change on the medial femoral condyle, grade 2 change on the medial tibial plateau. The medial meniscus has a radial tear of the posterior horn from the leading edge to the capsule (root tear). The notch shows the ACL to be intact, with the cyst at the a anterior tibial attachment. The lateral compartment shows normal articular cartilage on the lateral femoral condyle and lateral tibial plateau. The lateral meniscus is normal. The lateral gutter is normal. The cyst at the ACL insertion was debrided with the shaver. Unstable chondral flaps on the medial femoral condyle were debrided with the shaver. The posterior horn of the medial meniscus was debrided to a stable base using the shaver. The knee scorpion was used to pass a fiber link x 2 in the posterior horn of the medial meniscus. The tibial drill guide was used over the footprint of the root. A longitudinal incision over the anteromedial face of the tibia was placed. The flip cutter was drilled into the footprint. The flip cutter was flipped and back cut 10 mm. It was removed and exchanged for a fiber stick. The fiber stick was brought out the anteromedial portal and was used to shuttle both of the fiber link luggage tag sutures on the posterior horn out the anteromedial tibia. We then tensioned the sutures and fixed them to the tibia with a SwiveLock anchor. This provided an excellent repair of the posterior tibial attachment of the medial meniscus to its anatomic footprint. The power pick was used to microfracture the notch both medially and laterally. Arthroscopic instruments were removed, the portal sites were Steri-Stripped closed, the incision over the tibia was closed with 3-0 Vicryl and 4-0 Monocryl. A dry dressing was applied, the tourniquet was released. Sponge and needle counts were correct x 2. The patient tolerated the procedure well. There were no apparent complications. They were carefully transferred to the hospital bed and taken to the postanesthesia care unit in satisfactory condition. PLAN: The patient will be discharged to home. They will be protected nonweightbearing on the lower extremity for 6 weeks postoperatively. Range of motion will be allowed from 0-90 degrees x 2 weeks then unrestricted range of motion. They will follow up in 2 weeks for a wound check.
--- NOTE | 2024-05-18 12:31 | W.ANESCHARGE ---
Anesthesia Charges Start Date/Time Anesthesia Start Date: 05/18/24 Anesthesia Start Time: 11:13 Stop Date/Time Anesthesia Stop Date: 05/18/24 Anesthesia Stop Time: 12:28
--- NOTE | 2024-05-18 12:44 | W.PM.NB ---
Nerve Block Nerve Block Time Seen by Provider: 12:20 Date Seen: 05/18/24 Type of block requested by surgeon for post-operative analgesia: geniculars Side: right Time out performed: Yes Verification of patient name: Yes Verification of date of : Yes Site marking: site marked Name of person performing procedure: [place] Continuous monitoring Was continuous monitoring of O2 sat, B/P, eligibility consultant, recorded every 15 minutes?: Yes Procedure Checklist: sterile prep and needles Ultrasound guided. Images saved: No Medications given in 5ml increments after negative aspiration: Marcaine %: 0.5 mL: 12 Needle gauge: 25 Decadron (mg): 2 Patient tolerated procedure well: Yes Block Charges Block Charge (with Pro Fee): Genicular Nerve Block Use of Ultrasound Machine for Block: No
== END 2024-05-18 14:38 | disposition home or self-care (01) ==
LOC: OR 10:07
PROVIDERS: PCP Family Medicine; Visit Provider Orthopaedic Surgery
PROC: (CPT 29882; principal; 2024-05-18 12:00)
DX: S83.231A Complex tear of medial meniscus, current injury, right knee, initial encounter (principal); M17.11 Unilateral primary osteoarthritis, right knee; G89.18 Other acute postprocedural pain; M65.861 Other synovitis and tenosynovitis, right lower leg
CPT/HCPCS: 29882; 29879; 01400; 64454; C1713; J0665; J0690; J1100; J2250; J2405; J2704; J3010; J7120

== ENCOUNTER 2024-10-17 14:30 | Outpatient (RCR) | payer OTHER, SELFPAY | END 2024-10-17 15:27 | disposition home or self-care (01) | PROVIDERS: PCP Family Medicine; Visit Provider Orthopaedic Surgery | DX: Z48.89 Encounter for other specified surgical aftercare (principal); M25.561 Pain in right knee; Z51.89 Encounter for other specified aftercare | CPT/HCPCS: 97110; 97116; 97161 ==